=== PATIENT | male | born 1985 | race Hispanic/Latino ===

== ENCOUNTER 2017-09-09 00:37 | Emergency (ER) | payer OTHER ==
[2017-09-09 00:45] VITALS: TEMP 98.3
[2017-09-09] MEDS ORDERED: Sodium Chloride 0.9% 1,000 ML IV STA ×2 (01:14→02:36)
--- NOTE | 2017-09-09 01:20 | ED PDOC ---
HPI:Nausea, Vomiting, Diarrhea Time Seen by Provider: 09/09/17 00:48 Chief Complaint (Nursing): GI Problem Chief Complaint (Provider): vomiting, diarrhea History Per: Patient History/Exam Limitations: no limitations Onset/Duration Of Symptoms: Hrs (4) Current Symptoms Are (Timing): Still Present Additional Complaint(s): 32 y/o male presents with multiple episodes of vomiting, diarrhea x 4 hours. Patient states symptoms began shortly after eating a chicken quesidilla and fries for dinner. Patient reports noticing red blood mixed in with the vomitus on all episodes except the first and last. Denies fever, chest pain, shortness of breath, palpitations, abdominal pain, recent travel, sick contacts. Patient states he was able to tolerate water. Past Medical History Reviewed: Historical Data, Nursing Documentation, Vital Signs Vital Signs: Last Vital Signs Temp 98.3 F 09/09/17 00:45 Pulse 92 H 09/09/17 00:45 Resp BP 152/81 H 09/09/17 00:45 Pulse Ox 99 09/09/17 00:45 - Medical History PMH: No Chronic Diseases - Surgical History Surgical History: Hernia Repair - Family History Family History: States: No Known Family Hx - Social History Current smoker - smoking cessation education provided: No Ex-Smoker (has not smoked in the last 12 months): Yes Alcohol: Occasional (4x per week) Drugs: Denies - Home Medications Home Medications: Ambulatory Orders Medication Instructions Recorded Esomeprazole Magnesium [Nexium] 40 mg PO DAILY #10 capsule. 09/09/17 Ondansetron ODT [Zofran ODT] 4 mg PO Q8 PRN #10 odt 09/09/17 - Allergies Allergies/Adverse Reactions: Allergies Allergy/AdvReac Type Severity Reaction Status Date / Time No Known Allergies Allergy Verified 09/09/17 00:47 Review of Systems ROS Statement: Except As Marked, All Systems Reviewed And Found Negative Gastrointestinal: Positive for: Nausea, Vomiting, Diarrhea Physical Exam - Reviewed Nursing Documentation Reviewed: Yes Vital Signs Reviewed: Yes - Physical Exam Appears: Positive for: Well, Non-toxic, No Acute Distress Head Exam: Positive for: ATRAUMATIC, NORMAL INSPECTION, NORMOCEPHALIC Skin: Positive for: Normal Color Eye Exam: Positive for: Normal appearance ENT: Positive for: Normal ENT Inspection Cardiovascular/Chest: Positive for: Regular Rate, Rhythm Respiratory: Positive for: Normal Breath Sounds Gastrointestinal/Abdominal: Positive for: Normal Exam, Bowel Sounds, Soft. Negative for: Tenderness Back: Positive for: Normal Inspection Extremity: Positive for: Normal ROM Neurologic/Psych: Positive for: Alert, Oriented - Laboratory Results Result Diagrams: 09/09/17 01:32 09/09/17 01:32 - ECG O2 Sat by Pulse Oximetry: 99 - Progress ED Course And Treament: labs, IV fluids Patient declines anti-nausea medication at this time On re-eval, patient vomiting. Agreeable to medications at this time. IV zofan , IV pepcid ordered 3:30 Patient states he is feeling better Tolerating PO Patient educated on findings, discharged with rx Zofran, Nexium. Advised follow up PMD 2-3 days. Fluids. Millis diet. Return precautions given. Disposition - Clinical Impression Clinical Impression: Gastroenteritis - Patient ED Disposition Is Patient to be Admitted: No Counseled Patient/Family Regarding: Studies Performed, Diagnosis, Need For Followup, Rx Given - Disposition Referrals: Jaylen Moreno MD [Medical Doctor] - Primitivo Hernandez MD [Staff Provider] - Disposition: Routine/Home Disposition Time: 03:35 Condition: IMPROVED Prescriptions: Esomeprazole Magnesium [Nexium] 40 mg PO DAILY #10 capsule. Ondansetron ODT [Zofran ODT] 4 mg PO Q8 PRN #10 odt PRN Reason: Nausea/Vomiting Instructions: Viral Gastroenteritis Forms: [facility] (Georgian)
[2017-09-09 01:34] LABS: BASO % 0.2 % (0.0-2.0); EOS # 0.3 K/uL (0.0-0.7); EOS % 4.2 % (0.0-4.0); HEMOGLOBIN 14.8 g/dL (12.0-18.0); LYMPH # 0.5 K/uL (1.0-4.3); LYMPH % 6.2 % (20.0-40.0); MEAN CELL VOLUME 92.1 fl (80.0-94.0); MEAN CORPUSCULAR HGB CONC 33.7 g/dL (33.0-37.0); MEAN PLATELET VOLUME 8.2 fl (7.2-11.7); MONO # 0.5 K/uL (0.0-0.8); MONO % 5.8 % (0.0-10.0); NEUT # 6.6 K/uL (1.8-7.0); NEUT % 83.6 % (50.0-75.0); PLATELET COUNT 210 K/uL (130-400); RBC 4.76 Mil/uL (4.40-5.90); RED CELL DISTRIBUTION WIDTH 13.2 % (11.5-14.5); WHITE BLOOD COUNT 7.8 K/uL (4.8-10.8)
[2017-09-09 01:45] LABS: ALB/GLOB RATIO 1.3 (1.0-2.1); ALBUMIN 4.4 g/dL (3.5-5.0); ALT/SGPT 43 U/L (21-72); AST/SGOT 30 U/L (17-59); BLOOD UREA NITROGEN 18 mg/dl (9-20); CALCIUM 9.7 mg/dL (8.4-10.2); GFR AFRICAN-AMERICAN > 60; GFR NON-AFRICAN AMERICAN > 60; LIPASE 45 U/L (23-300)
[2017-09-09 02:57] LABS: BANDS 2 % (0-2); EOSINOPHIL 3 % (0-7); LYMPHOCYTE 5 % (20-50); MONOCYTE 4 % (0-10); NEUTROPHIL 85 % (42-75); PLATELET ESTIMATE NORMAL (NORMAL); REACTIVE LYMPHOCYTES 1 % (0-0); TOTAL CELLS COUNTED 100
[2017-09-09 03:49] VITALS: BP 122/64; PULSE 91; RESP 18; O2SAT 98
== END 2017-09-09 04:01 | disposition home or self-care (01) ==
LOC: H.ER 00:37
DX: K52.9 Noninfective gastroenteritis and colitis, unspecified (principal)
CPT/HCPCS: 80053; 83690; 85025; 96361; 96374; 96375; 99284; J2405; J7040